=== PATIENT | female | born 1980 | race Hispanic/Latino ===

== ENCOUNTER 2017-05-25 13:21 | Emergency (ER) | payer BC ==
--- NOTE | 2017-05-25 14:19 | RAD REPORT ---
EXAM DESCRIPTION: RAD - Knee Right 3 View - 05/25/2017 2:03 pm CLINICAL HISTORY: Right knee pain after injury FINDINGS: No fracture or dislocation is seen.
[2017-05-25] MEDS ORDERED: KETOROLAC 30 MG/ML INJ ONE (14:31)
--- NOTE | 2017-05-25 14:48 | ER ---
Nurse's Notes [facility] Name: Nel Collins Age: 36 yrs Sex: Female : 1980 Arrival Date: 05/25/2017 Time: 13:28 Bed 9 Private MD: Diagnosis: Pain in right knee Presentation: 05/25 13:28 Presenting complaint: Patient states: I injured my right knee on Sunday and then la1 yesterday I felt something pop and my foot is swelling. Transition of care: patient was not received from another setting of care. Onset of symptoms was May 25, 2017. Care prior to arrival: None. 13:28 Method Of Arrival: Wheelchair la1 13:28 Acuity: ANAM 4 la1 Historical: - Allergies: 13: PENICILLINS; la1 13: Vicodin; la1 - PMHx: 13:28 None; la1 - Immunization history:: Adult Immunizations up to date. - Social history:: Smoking status: Patient/guardian denies using tobacco. Screenin:21 Abuse screen: Denies threats or abuse. Denies injuries from another. Nutritional ss screening: No deficits noted. Tuberculosis screening: Never had TB. Fall Risk None identified. Assessment: 14:21 General: Appears uncomfortable, Behavior is calm, cooperative. Pain: Complains of pain ss in right knee Pain Quality of pain is described as tender, Pain began 1 day ago. Is continuous. Neuro: Level of Consciousness is awake, alert, obeys commands. Cardiovascular: Capillary refill < 3 seconds is brisk in bilateral fingers toes. Respiratory: Airway is patent Respiratory effort is even, unlabored, Respiratory pattern is regular, symmetrical. EENT: Oral mucosa is moist. Derm: Skin is intact, is healthy with good turgor, Skin is dry, Skin is pink, warm \T\ dry. normal. Musculoskeletal: Swelling absent. Vital Signs: 13:29 BP 115 / 90; Pulse 71; Resp 16; Temp 98.4; Pulse Ox 100% ; Weight 65.77 kg; Height 5 la1 ft. 0 in. (152.40 cm) (R); 13: Body Mass Index 28.32 (65.77 kg, 152.40 cm) la1 ED Course: 13:28 Patient arrived in ED. la1 : Triage completed. la1 13:29 Radha Henao FNP-C is [facility]. kb 13:29 Hernan Ryder MD is Attending Physician. kb 13:29 Arm band placed on left wrist. la1 14:02 X-ray completed. Portable x-ray completed in exam room. Patient tolerated procedure sw well. 14:20 Shital Van, RN is Primary Nurse. ss 14:21 Patient has correct armband on for positive identification. Bed in low position. Call ss light in reach. 14:21 No provider procedures requiring assistance completed. Patient did not have IV access ss during this emergency room visit. Administered Medications: 14:21 Drug: TORadol 60 mg Route: IM; Site: right gluteus; ss 15:04 Follow up: Response: No adverse reaction; Pain is decreased ss Outcome: 14:47 Discharge ordered by . kb 15:06 Discharged to home with family, via wheelchair ss 15:06 Condition: good 15:06 Discharge instructions given to patient, Instructed on discharge instructions, follow up and referral plans. Demonstrated understanding of instructions, follow-up care. 15:08 Patient left the ED. ss Signatures: Radha Henao FNP-C TRAVEL DIRECTOR-Ckb Shital Van, RN RN Aneesh Marley RN RN la1 Rachel Agosto
--- NOTE | 2017-05-25 14:48 | EDPHYS ---
Physician Documentation [facility] Name: Nel Collins Age: 36 yrs Sex: Female : 1980 Arrival Date: 05/25/2017 Time: 13:28 Bed 9 Private MD: ED Physician Hernan Ryder HPI: 05/25 14:45 This 36 yrs old Female presents to ER via Wheelchair with complaints of Knee kb Pain. 14:45 The patient presents with pain, that is acute, swelling. The complaints affect the kb right knee. Context: The problem was sustained at home, resulted from an unknown cause, the patient can fully bear weight, the patient is able to ambulate. Onset: The symptoms/episode began/occurred yesterday. Modifying factors: The symptoms are alleviated by nothing. the symptoms are aggravated by weight bearing, bending knee. Associated signs and symptoms: Pertinent positives: swelling, Pertinent negatives calf tenderness, fever, nausea, numbness, rash, tingling, vomiting, warmth, weakness. Treatment prior to arrival includes: no previous treatment. Severity of symptoms: At their worst the symptoms were moderate, in the emergency department the symptoms are unchanged. The patient has not experienced similar symptoms in the past. The patient has not recently seen a physician. pt states she was laying on her stomach, sat back on her knees and felt a pop . Historical: - Allergies: 13:28 PENICILLINS; la1 13:28 Vicodin; la1 - PMHx: 13:28 None; la1 - Immunization history:: Adult Immunizations up to date. - Social history:: Smoking status: Patient/guardian denies using tobacco. ROS: 14:42 Constitutional: Negative for fever, chills, and weight loss, Cardiovascular: Negative kb for chest pain, palpitations, and edema, Respiratory: Negative for shortness of breath, cough, wheezing, and pleuritic chest pain, Abdomen/GI: Negative for abdominal pain, nausea, vomiting, diarrhea, and constipation, Back: Negative for injury and pain, Skin: Negative for injury, rash, and discoloration, Neuro: Negative for headache, weakness, numbness, tingling, and seizure. 14:42 MS/extremity: Positive for pain, swelling, tenderness, of the right knee. Exam: 14:42 Constitutional: This is a well developed, well nourished patient who is awake, alert, kb and in no acute distress. Head/Face: Normocephalic, atraumatic. Chest/axilla: Normal chest wall appearance and motion. Nontender with no deformity. No lesions are appreciated. Cardiovascular: Regular rate and rhythm with a normal S1 and S2. No gallops, murmurs, or rubs. Normal PMI, no JVD. No pulse deficits. Respiratory: Lungs have equal breath sounds bilaterally, clear to auscultation and percussion. No rales, rhonchi or wheezes noted. No increased work of breathing, no retractions or nasal flaring. Abdomen/GI: Soft, non-tender, with normal bowel sounds. No distension or tympany. No guarding or rebound. No evidence of tenderness throughout. Back: No spinal tenderness. No costovertebral tenderness. Full range of motion. Skin: Warm, dry with normal turgor. Normal color with no rashes, no lesions, and no evidence of cellulitis. MS/ Extremity: Pulses equal, no cyanosis. Neurovascular intact. Full, normal range of motion. Neuro: Awake and alert, GCS 15, oriented to person, place, time, and situation. Cranial nerves II-XII grossly intact. Motor strength 5/5 in all extremities. Sensory grossly intact. Cerebellar exam normal. Normal gait. Vital Signs: 13:29 BP 115 / 90; Pulse 71; Resp 16; Temp 98.4; Pulse Ox 100% ; Weight 65.77 kg; Height 5 la1 ft. 0 in. (152.40 cm) (R); 13:29 Body Mass Index 28.32 (65.77 kg, 152.40 cm) la1 MDM: 13:30 Patient medically screened. kb 14:42 Data reviewed: vital signs, nurses notes. Data interpreted: Pulse oximetry: on room air kb is 100 %. Interpretation: normal. Counseling: I had a detailed discussion with the patient and/or guardian regarding: the historical points, exam findings, and any diagnostic results supporting the discharge/admit diagnosis, radiology results, the need for outpatient follow up, a family practitioner, to return to the emergency department if symptoms worsen or persist or if there are any questions or concerns that arise at home. 05/25 13:36 Order name: Knee Right 3 View XRAY kb 05/25 14:19 Order name: RAD; Complete Time: 14:25 EDMS 05/25 14:42 Order name: Knee Immobilizer; Complete Time: 15:04 Administered Medications: 14:21 Drug: TORadol 60 mg Route: IM; Site: right gluteus; ss 15:04 Follow up: Response: No adverse reaction; Pain is decreased ss Disposition: 17:52 Co-signature as Attending Physician, Hernan Ryder MD. rn Disposition: 05/25/17 14:47 Discharged to Home. Impression: Pain in right knee. - Condition is Stable. - Discharge Instructions: Knee Pain, [id number]. - Medication Reconciliation Form, Thank You Letter, Antibiotic Education, Prescription Opioid Use form. - Follow up: Emergency Department; When: As needed; Reason: Worsening of condition. Follow up: Private Physician; When: 2 - 3 days; Reason: Recheck today's complaints, Continuance of care, Re-evaluation by your physician. Signatures: Dispatcher [employer]CA Radha Henao, FUEL CELL TEST ENGINEER-C FUEL CELL TEST ENGINEER-Ckb Hernan Ryder MD MD rn Smirch, Shelby, RN RN ss Attema, Lee, RN RN la1
[2017-05-25 15:18] VITALS: BP 115/90; TEMP 98.4; O2SAT 100
== END 2017-05-25 15:08 | disposition home or self-care (01) ==
LOC: ER 13:21
DX: M25.561 Pain in right knee (principal); Z88.0 Allergy status to penicillin; Z88.5 Allergy status to narcotic agent
CPT/HCPCS: 96372; 99283